=== PATIENT | female | born 1955 | race Caucasian/White ===

== ENCOUNTER 2017-12-09 17:21 | Emergency (ER) | payer OTHER ==
[2017-12-09 19:08] LABS: BASO # 0.1 10^3/uL (0.0-0.2); BASO % 0.8 % (0.0-1.0); EOS # 0.3 10^3/uL (0.0-0.50); EOS % 3.6 % (0.0-3.0); HEMATOCRIT 42.1 % (36.0-47.0); HEMOGLOBIN 14.5 g/dl (12.0-15.5); IMMATURE GRANULOCYTE % 0.5 % (0-3.0); LYMPH % 25.8 % (24.0-44.0); MEAN CORPUSCULAR HEMOGLOBIN 29.3 pg (27.0-33.0); MEAN CORPUSCULAR HGB CONC 34.4 g/dl (32.0-36.5); MEAN CORPUSCULAR VOLUME 85.1 fl (80.0-96.0); MONO # 0.6 10^3/uL (0.0-0.8); MONO % 7.8 % (0.0-5.0); NEUTROPHILS # 4.9 10^3/uL (1.8-7.7); NEUTROPHILS % 61.5 % (36.0-66.0); PLATELET COUNT, AUTOMATED 290 10^3/uL (150-450); RED BLOOD COUNT 4.95 10^6/uL (4.00-5.40); RED CELL DISTRIBUTION WIDTH 13.1 % (11.5-14.5); WHITE BLOOD COUNT 7.9 10^3/uL (4.0-10.0)
[2017-12-09 19:17] LABS: INR 0.93; PARTIAL THROMBOPLASTIN TIME 28.3 SECONDS (25.4-37.6); PROTHROMBIN TIME 12.6 SECONDS (12.1-14.4)
[2017-12-09 19:45] LABS: ALBUMIN 3.9 GM/DL (3.2-5.2); ALKALINE PHOSPHATASE 87 U/L (45-117); ALT/SGPT 52 U/L (12-78); ANION GAP 11 MEQ/L (8-16); AST/SGOT 67 U/L (7-37); BILIRUBIN,DIRECT 0.1 MG/DL (0.0-0.2); BILIRUBIN,TOTAL 0.4 MG/DL (0.2-1.0); BLOOD UREA NITROGEN 17 MG/DL (7-18); CALCIUM LEVEL 9.4 MG/DL (8.8-10.2); CARBON DIOXIDE LEVEL 25 MEQ/L (21-32); CHLORIDE LEVEL 105 MEQ/L (98-107); CPK CREATINE PHOSPHOKINASE 523 U/L (26-192); CREATININE FOR GFR 0.72 MG/DL (0.55-1.30); FREE T4 1.09 NG/DL (0.76-1.46); GLOMERULAR FILTRATION RATE > 60.0 (>45); GLUCOSE, FASTING 219 MG/DL (70-100); LIPASE 257 U/L (73-393); MB/CK RELATIVE INDEX 0.54 (< OR =4); NT-PRO BNP 101 PG/ML (<125); POTASSIUM SERUM 4.2 MEQ/L (3.5-5.1); SODIUM LEVEL 141 MEQ/L (136-145); TOTAL PROTEIN 7.8 GM/DL (6.4-8.2); TROPONIN I < 0.02 NG/ML (< 0.10)
[2017-12-09] MEDS: CHLORTHALIDONE 12.5MG PER 1/2 TABLET PO (21:15)
== END 2017-12-09 21:20 | disposition home or self-care (01) ==
LOC: M ED 17:21
DX: I16.0 Hypertensive urgency (principal); T39.395A Adverse effect of other nonsteroidal anti-inflammatory drugs [NSAID], initial encounter; Y92.9 Unspecified place or not applicable; Y93.9 Activity, unspecified; J45.909 Unspecified asthma, uncomplicated; E78.5 Hyperlipidemia, unspecified; M54.30 Sciatica, unspecified side; Z79.82 Long term (current) use of aspirin; Z79.899 Other long term (current) drug therapy; Z88.1 Allergy status to other antibiotic agents; Z88.8 Allergy status to other drugs, medicaments and biological substances
CPT/HCPCS: 71045

== ENCOUNTER → 2017-12-12 | Outpatient (REF) | payer OTHER ==
[2017-12-12 12:53] LABS: PLATELET COUNT, AUTOMATED 264 10^3/uL (150-450)
[2017-12-12 12:55] LABS: INR 0.89; PROTHROMBIN TIME 12.1 SECONDS (12.1-14.4)
[2017-12-12 12:56] LABS: PARTIAL THROMBOPLASTIN TIME 29.3 SECONDS (25.4-37.6)
== END ==
LOC: M LABDRAW1 11:13
DX: Z01.812 Encounter for preprocedural laboratory examination (principal)

== ENCOUNTER → 2018-06-28 | Outpatient (REF) | payer OTHER ==
[~2018-06-28] MED LIST: ASPI81TA26 PO; ATOR1TAB19 PO; CHLO125TA PO; CLAR10CA3 PO; FISH100049 PO; FLAX10008 PO; FLON1SPR NARES; GABA-843 PO; LISI40TA PO; LUTE1CAP7 PO; MELO7.5T7 PO; METF500T13 PO; MONT10TA2 PO; OMEP20CA3 PO; SYMB16INH PO; VENTAER; VITA-176 PO; XIID5DRO OS; ZADI1DRO OS
== END ==
LOC: M LAB REF 11:55
PROVIDERS: ATTEND Nurse Practitioner Family
DX: N76.0 Acute vaginitis (principal)

== ENCOUNTER 2019-10-07 14:47 | Emergency (ER) | payer OTHER ==
[~2019-10-07] VITALS: Ht 162.6 cm; Wt 85.3 kg
[~2019-10-07 14:47] MED LIST changes: -MONT10TA2 PO; +MONT10TA4 PO; +OMEP1CAP73 PO; -OMEP20CA3 PO
[2019-10-07] MEDS ORDERED: PANT20TA6 PO (15:31)
[2019-10-07] MEDS ORDERED: QVAR80AE8 INH (15:31)
[2019-10-07] MEDS ORDERED: OZEM2INJ SC (15:31)
[2019-10-07] MEDS ORDERED: JANU100T PO (15:31)
[2019-10-07] MEDS ORDERED: MELO7.5T35 PO (15:32)
[2019-10-07] MEDS ORDERED: IBUPROFEN 800 MG TAB PO ONE (15:45)
[2019-10-07] MEDS ORDERED: ACETAMINOPHEN 500 MG TAB PO ONE (15:45)
[2019-10-07] MEDS ORDERED: ROBA750T4 PO (16:44)
[2019-10-07 16:53] VITALS: BP 135/68
--- NOTE | 2019-10-08 09:07 | REP ---
REASON: Trauma. FINDINGS: The hip joint space is symmetric and relatively well maintained. There is no acute or destructive osseous lesion. Electronically Signed by Jourdan Velez DO 10/08/2019 09:41 A
--- NOTE | 2019-10-08 09:07 | REP ---
REASON: Trauma. COMPARISON: No priors. FINDINGS: No acute fracture or destructive osseous lesion. The mortise is intact. Electronically Signed by Jourdan Velez DO 10/08/2019 09:41 A
--- NOTE | 2019-10-08 09:33 | REP ---
REASON: Trauma. FINDINGS: No acute fracture or destructive osseous lesion. Electronically Signed by Jourdan Velez DO 10/08/2019 09:41 A
== END 2019-10-07 16:54 | disposition home or self-care (01) ==
LOC: M ED 14:47
DX: S76.012A Strain of muscle, fascia and tendon of left hip, initial encounter (principal); S96.912A Strain of unspecified muscle and tendon at ankle and foot level, left foot, initial encounter; S46.811A Strain of other muscles, fascia and tendons at shoulder and upper arm level, right arm, initial encounter; W10.8XXA Fall (on) (from) other stairs and steps, initial encounter; Y92.098 Other place in other non-institutional residence as the place of occurrence of the external cause; Y93.01 Activity, walking, marching and hiking; Y99.8 Other external cause status; I10 Essential (primary) hypertension; E11.9 Type 2 diabetes mellitus without complications; J45.909 Unspecified asthma, uncomplicated; E78.5 Hyperlipidemia, unspecified; Z88.1 Allergy status to other antibiotic agents; Z79.899 Other long term (current) drug therapy; Z79.51 Long term (current) use of inhaled steroids; Z79.84 Long term (current) use of oral hypoglycemic drugs

== ENCOUNTER → 2022-03-11 | Outpatient (CLI) | payer MEDICARE, OTHER ==
[~2022-03-11] MED LIST changes: +GABA-282 PO; -GABA-843 PO; +JANU100T PO; -LISI40TA PO; +LISI40TA4 PO; +MELO7.5T35 PO; -MONT10TA4 PO; +MONT10TA97 PO; +OZEM2INJ SC; +PANT20TA6 PO; +QVAR80AE8 INH; +ROBA750T4 PO
== END ==
LOC: M PLAIMG 10:15
PROVIDERS: ATTEND Physician Assistant
DX: M16.12 Unilateral primary osteoarthritis, left hip (principal)

== ENCOUNTER → 2022-09-02 | Outpatient (CLI) | payer MEDICARE, OTHER | LOC: M WUC 10:31 | PROVIDERS: ATTEND Internal Medicine | DX: M25.571 Pain in right ankle and joints of right foot (principal) ==

== ENCOUNTER 2023-06-11 20:51 | Inpatient (IN) | payer MEDICARE, OTHER ==
[~2023-06-11] VITALS: Ht 162.6 cm; Wt 77.6 kg
[~2023-06-11 20:51] MED LIST changes: -VENTAER; +VENTAER INH; -XIID5DRO OS; +XIID5DRO OU
[2023-06-11 21:28] LABS: BASO # 0.1 10^3/uL (0.0-0.2); BASO % 0.3 % (0.0-1.0); EOS # 0.2 10^3/uL (0.0-0.5); EOS % 1.3 % (0.0-3.0); HEMATOCRIT 39.4 % (36.0-47.0); HEMOGLOBIN 12.4 g/dl (12.0-15.5); LYMPH # 1.5 10^3/uL (1.5-5.0); LYMPH % 9.8 % (24.0-44.0); MEAN CORPUSCULAR HEMOGLOBIN 26.1 pg (27.0-33.0); MEAN CORPUSCULAR HGB CONC 31.5 g/dl (32.0-36.5); MEAN CORPUSCULAR VOLUME 82.9 fl (80.0-96.0); MONO % 6.4 % (2.0-8.0); NEUTROPHILS # 12.6 10^3/uL (1.5-8.5); NEUTROPHILS % 81.7 % (36.0-66.0); PLATELET COUNT, AUTOMATED 368 10^3/uL (150-450); RED BLOOD COUNT 4.75 10^6/uL (4.00-5.40); WHITE BLOOD COUNT 15.4 10^3/uL (4.0-10.0)
[2023-06-11] MEDS: ONDANSETRON 4MG 2ML VIAL IV ONE (21:57)
[2023-06-11 22:05] LABS: BILIRUBIN,DIRECT 0.1 MG/DL (<0.4); BILIRUBIN,TOTAL 0.3 MG/DL (0.3-1.2); CALCIUM LEVEL 9.4 MG/DL (8.3-10.6); CREATININE FOR GFR 2.52 MG/DL (0.55-1.30); GLOMERULAR FILTRATION RATE 20.3 (>45); POTASSIUM SERUM 7.1 MMOL/L (3.5-5.1); TOTAL PROTEIN 7.5 G/DL (5.7-8.2)
[2023-06-11] MEDS: CALCIUM CHLORIDE 10% 1 GM/10 ML SYR IV ONE (22:39)
[2023-06-11] MEDS: DEXTROSE 50% 50ML SYRINGE IV ONE (22:39)
[2023-06-11] MEDS: PATIROMER SORBITEX CALCIUM 8.4 GM POWDER PACKET (VELTASSA) PO ONE (22:39)
[2023-06-11] MEDS: HumuLIN R (REGULAR) INSULIN (NovoLIN R) **100U/ML** PER UNIT IV ONE (22:39)
[2023-06-11] MEDS: NS 1,000 ML IV ONE (22:40)
[2023-06-11 22:41] LABS: VENOUS BASE EXCESS -10.9 (-2.0-2.0); VENOUS HCO3 15.4 MMOL/L (23.0-27.0); VENOUS O2 SATURATION 84.1 % (60.0-80.0); VENOUS PARTIAL PRESSURE CO2 35.8 mmHg (38.0-50.0); VENOUS PARTIAL PRESSURE O2 50.4 mmHg (30.0-50.0); VENOUS PH 7.251 UNITS (7.330-7.430); VENOUS STANDARD HCO3 15.7 MMOL/L; VENOUS TOTAL CO2 16.5 MMOL/L (24.0-28.0)
[2023-06-11] MEDS: SODIUM BICARBONATE 8.4% INJ 50ML SYRINGE IV ONE (22:57)
[2023-06-12] VITALS (7 sets, daily range): BP systolic 114–140; BP diastolic 53–72; TEMP 97.5–98.2; O2SAT 95–100
[2023-06-12] MEDS: PIPERACILLIN/TAZOBACTAM SOD 2.25 GM in D5W MINI-BAG PLUS 50 ML IV ONE
[2023-06-12] MEDS ORDERED: VENL75CA47 PO (00:11)
[2023-06-12] MEDS ORDERED: ZYRT10TA12 PO (00:11)
[2023-06-12] MEDS ORDERED: XALA0.007 OU (00:11)
[2023-06-12] MEDS ORDERED: SEMA2PEN INJ (00:11)
[2023-06-12] MEDS ORDERED: FARX1TAB3 PO (00:11)
[2023-06-12] MEDS ORDERED: CHLO125TA PO (00:11)
[2023-06-12] MEDS ORDERED: JANU25TA PO (00:11)
[2023-06-12] MEDS ORDERED: ALAW0.02 OU (00:12)
[2023-06-12] MEDS ORDERED: HOME MED LIST COMPLETE! XX SCH (00:15)
[2023-06-12] MEDS ORDERED: PIPERACILLIN/TAZOBACTAM SOD 2.25 GM in D5W MINI-BAG PLUS 50 ML IV SCH (01:35)
[2023-06-12] MEDS ORDERED: ALBUTEROL 90 MCG/ACT 8GM HFA INHALER INH PRN (01:35)
[2023-06-12] MEDS ORDERED: HYDROMORPHONE HCL 0.5 MG/ 0.5 ML SYRINGE IV PRN (01:35)
[2023-06-12] MEDS: NS 1,000 ML IV SCH ×2 (01:53)
[2023-06-12] MEDS: LATANOPROST 0.005% OPHTH SOLN 2.5 ML OU SCH (02:39)
[2023-06-12] MEDS ORDERED: DEXTROSE 50% 50ML SYRINGE IV PRN (04:40)
[2023-06-12] MEDS ORDERED: GLUCOSE 4GM CHEW TABLET PO PRN (04:40)
[2023-06-12] MEDS ORDERED: GLUCAGON INJ 1MG VIAL SC PRN (04:40)
[2023-06-12 05:43] LABS: HEMOGLOBIN 10.5 g/dl (12.0-15.5)
[2023-06-12] MEDS: INSULIN LISPRO (NovoLOG) PER UNIT SC SCH ×3 (06:00→20:56)
[2023-06-12 06:24] LABS: ALBUMIN 3.3 G/DL (3.2-5.2); BILIRUBIN,TOTAL 0.4 MG/DL (0.3-1.2); CALCIUM LEVEL 9.1 MG/DL (8.3-10.6); CREATININE FOR GFR 2.09 MG/DL (0.55-1.30); GLOMERULAR FILTRATION RATE 25.1 (>45); POTASSIUM SERUM 6.2 MMOL/L (3.5-5.1); TOTAL PROTEIN 6.2 G/DL (5.7-8.2)
[2023-06-12] MEDS: HEPARIN SOD (PORCINE) 5000UNITS/ML 1ML VIAL/SYRINGE SC SCH (06:31)
[2023-06-12] MEDS: CALCIUM GLUCONATE 1,000 MG in D5W MINI-BAG PLUS 100 ML IV STA (07:11)
[2023-06-12] MEDS: DEXTROSE 50% 50ML SYRINGE IV STA (07:11)
[2023-06-12] MEDS: HumuLIN R (REGULAR) INSULIN (NovoLIN R) **100U/ML** PER UNIT IV STA (07:12)
[2023-06-12] MEDS: SYMBICORT 160/4.5MCG INHALER 6GM INH SCH (07:18)
[2023-06-12] MEDS ORDERED: MORPHINE 2 MG/ML 1ML VIAL IV PRN ×2 (07:20)
[2023-06-12 07:28] LABS: HEMATOCRIT 30.9 % (36.0-47.0); HEMOGLOBIN 9.9 g/dl (12.0-15.5); MEAN CORPUSCULAR HEMOGLOBIN 26.5 pg (27.0-33.0); MEAN CORPUSCULAR VOLUME 82.6 fl (80.0-96.0); RED BLOOD COUNT 3.74 10^6/uL (4.00-5.40); WHITE BLOOD COUNT 7.8 10^3/uL (4.0-10.0)
[2023-06-12 07:29] LABS: PLATELET COUNT, AUTOMATED 268 10^3/uL (150-450)
[2023-06-12] MEDS: PIPERACILLIN/TAZOBACTAM SOD 2.25 GM in D5W MINI-BAG PLUS 50 ML IV SCH ×2 (08:15→13:20)
[2023-06-12] MEDS: PATIROMER SORBITEX CALCIUM 8.4 GM POWDER PACKET (VELTASSA) PO STA (09:01)
[2023-06-12 09:10] LABS: INR 1.22; PARTIAL THROMBOPLASTIN TIME 29.8 SECONDS (24.8-34.2)
[2023-06-12] MEDS: traMADol 50 MG TAB PO PRN (09:24)
[2023-06-12 12:57] LABS: ALBUMIN 3.4 G/DL (3.2-5.2); BILIRUBIN,TOTAL 0.5 MG/DL (0.3-1.2); CALCIUM LEVEL 9.3 MG/DL (8.3-10.6); CREATININE FOR GFR 1.88 MG/DL (0.55-1.30); GLOMERULAR FILTRATION RATE 28.4 (>45); POTASSIUM SERUM 5.6 MMOL/L (3.5-5.1); TOTAL PROTEIN 6.3 G/DL (5.7-8.2)
[2023-06-12 20:45] LABS: ALBUMIN 3.2 G/DL (3.2-5.2); BILIRUBIN,TOTAL 0.3 MG/DL (0.3-1.2); CALCIUM LEVEL 8.6 MG/DL (8.3-10.6); CREATININE FOR GFR 1.79 MG/DL (0.55-1.30); GLOMERULAR FILTRATION RATE 30.1 (>45); POTASSIUM SERUM 5.8 MMOL/L (3.5-5.1)
[2023-06-13 02:10] VITALS: BP 131/74; TEMP 97.7; O2SAT 95
[2023-06-13 04:25] LABS: HEMATOCRIT 29.8 % (36.0-47.0); HEMOGLOBIN 9.7 g/dl (12.0-15.5); MEAN CORPUSCULAR HEMOGLOBIN 26.4 pg (27.0-33.0); MEAN CORPUSCULAR HGB CONC 32.6 g/dl (32.0-36.5); MEAN CORPUSCULAR VOLUME 81.2 fl (80.0-96.0); PLATELET COUNT, AUTOMATED 256 10^3/uL (150-450); RED BLOOD COUNT 3.67 10^6/uL (4.00-5.40); WHITE BLOOD COUNT 6.6 10^3/uL (4.0-10.0)
[2023-06-13 04:57] LABS: BILIRUBIN,TOTAL 0.3 MG/DL (0.3-1.2); CALCIUM LEVEL 8.2 MG/DL (8.3-10.6); CREATININE FOR GFR 1.68 MG/DL (0.55-1.30); GLOMERULAR FILTRATION RATE 32.4 (>45); POTASSIUM SERUM 5.4 MMOL/L (3.5-5.1); TOTAL PROTEIN 5.8 G/DL (5.7-8.2)
[2023-06-13 05:25] VITALS: BP 138/72; TEMP 97.7; O2SAT 96
[2023-06-13] MEDS: ONDANSETRON 4MG 2ML VIAL IV PRN (08:18)
[2023-06-13 10:00] VITALS: BP 137/70; TEMP 97.7; O2SAT 94
[2023-06-13 12:32] LABS: ALBUMIN 3.3 G/DL (3.2-5.2); BILIRUBIN,TOTAL 0.3 MG/DL (0.3-1.2); CALCIUM LEVEL 8.4 MG/DL (8.3-10.6); CREATININE FOR GFR 1.55 MG/DL (0.55-1.30); GLOMERULAR FILTRATION RATE 35.5 (>45); POTASSIUM SERUM 5.8 MMOL/L (3.5-5.1); TOTAL PROTEIN 6.2 G/DL (5.7-8.2)
[2023-06-13 14:00] VITALS: BP 147/83; TEMP 98.1; O2SAT 97
[2023-06-13] MEDS: PATIROMER SORBITEX CALCIUM 8.4 GM POWDER PACKET (VELTASSA) PO ONE (17:23)
[2023-06-13 18:00] VITALS: BP 152/90; TEMP 97.9; O2SAT 99
[2023-06-13 19:44] VITALS: BP 138/79; TEMP 97.7; O2SAT 98
[2023-06-14] VITALS (7 sets, daily range): BP systolic 140–165; BP diastolic 68–88; TEMP 97.5–97.9; O2SAT 97–100
[2023-06-14 06:50] LABS: HEMATOCRIT 31.1 % (36.0-47.0); HEMOGLOBIN 9.9 g/dl (12.0-15.5); MEAN CORPUSCULAR HEMOGLOBIN 26.4 pg (27.0-33.0); MEAN CORPUSCULAR HGB CONC 31.8 g/dl (32.0-36.5); MEAN CORPUSCULAR VOLUME 82.9 fl (80.0-96.0); PLATELET COUNT, AUTOMATED 231 10^3/uL (150-450); RED BLOOD COUNT 3.75 10^6/uL (4.00-5.40); WHITE BLOOD COUNT 6.4 10^3/uL (4.0-10.0)
[2023-06-14 07:20] LABS: ALBUMIN 3.2 G/DL (3.2-5.2); BILIRUBIN,TOTAL 0.3 MG/DL (0.3-1.2); CALCIUM LEVEL 8.2 MG/DL (8.3-10.6); CREATININE FOR GFR 1.49 MG/DL (0.55-1.30); GLOMERULAR FILTRATION RATE 37.2 (>45); POTASSIUM SERUM 5.2 MMOL/L (3.5-5.1); TOTAL PROTEIN 5.9 G/DL (5.7-8.2)
[2023-06-14] MEDS: METOCLOPRAMIDE INJ 10MG/2ML VIAL IV PRN (10:04)
[2023-06-14] MEDS: amLODIPine 5 MG TAB PO SCH (10:43)
[2023-06-14] MEDS: PERCOCET 5MG/325MG TAB PO PRN (13:06)
[2023-06-14] MEDS: ONDANSETRON 4MG 2ML VIAL IV PRN (17:42)
[2023-06-14] MEDS: traMADol 50 MG TAB PO PRN (17:45)
[2023-06-15] VITALS (7 sets, daily range): BP systolic 154–163; BP diastolic 78–90; TEMP 97.5–98; O2SAT 96–100
[2023-06-15 06:16] LABS: HEMATOCRIT 31.7 % (36.0-47.0); HEMOGLOBIN 10.1 g/dl (12.0-15.5); MEAN CORPUSCULAR HEMOGLOBIN 26.1 pg (27.0-33.0); MEAN CORPUSCULAR HGB CONC 31.9 g/dl (32.0-36.5); MEAN CORPUSCULAR VOLUME 81.9 fl (80.0-96.0); PLATELET COUNT, AUTOMATED 251 10^3/uL (150-450); RED BLOOD COUNT 3.87 10^6/uL (4.00-5.40); WHITE BLOOD COUNT 6.3 10^3/uL (4.0-10.0)
[2023-06-15 06:51] LABS: ALBUMIN 3.2 G/DL (3.2-5.2); BILIRUBIN,TOTAL 0.4 MG/DL (0.3-1.2); CALCIUM LEVEL 8.3 MG/DL (8.3-10.6); CREATININE FOR GFR 1.34 MG/DL (0.55-1.30); POTASSIUM SERUM 4.5 MMOL/L (3.5-5.1); TOTAL PROTEIN 5.8 G/DL (5.7-8.2)
[2023-06-15] MEDS: SENOKOT S TAB PO SCH (12:29)
[2023-06-15] MEDS: **hydrALAZINE** 10 MG TAB PO SCH (20:29)
[2023-06-16 02:00] VITALS: BP 151/81; TEMP 97.5; O2SAT 97
[2023-06-16 06:00] VITALS: BP 141/67; TEMP 97.5; O2SAT 96
[2023-06-16 06:55] LABS: CALCIUM LEVEL 8.4 MG/DL (8.3-10.6); CREATININE FOR GFR 1.29 MG/DL (0.55-1.30); GLOMERULAR FILTRATION RATE 43.9 (>45); POTASSIUM SERUM 3.9 MMOL/L (3.5-5.1)
[2023-06-16] MEDS ORDERED: MAGNESIUM OXIDE 400MG TAB (MAG-OX) PO ONE (08:00)
[2023-06-16] MEDS: MAG SULF 1GM/100ML (MAG RUN) 1 GM in IV 1 EA IV SCH (09:26)
[2023-06-16 09:30] VITALS: BP 152/72; TEMP 97.3; O2SAT 99
[2023-06-16] MEDS: MAGNESIUM CITRATE 300ML BTL PO ONE (10:28)
[2023-06-16 14:00] VITALS: BP 146/70; TEMP 97.9; O2SAT 99
[2023-06-16] MEDS: PIPERACILLIN/TAZOBACTAM SOD 3.375 GM in D5W MINI-BAG PLUS 50 ML IV SCH (14:30)
[2023-06-16] MEDS: MAG SULF 1GM/100ML (MAG RUN) 1 GM in IV 1 EA IV ONE (15:59)
[2023-06-16] MEDS: ACETAMINOPHEN TAB 650MG DOSE (2X325MG) PO PRN (16:03)
[2023-06-16 18:00] VITALS: BP 154/79; TEMP 97.9; O2SAT 99
[2023-06-16 22:00] VITALS: BP 155/83; TEMP 98.1; O2SAT 96
[2023-06-17 02:25] VITALS: BP 145/76; TEMP 97.9; O2SAT 96
[2023-06-17 05:20] VITALS: BP 150/74; TEMP 98.1; O2SAT 98
[2023-06-17 07:36] LABS: CALCIUM LEVEL 8.9 MG/DL (8.3-10.6); CREATININE FOR GFR 1.31 MG/DL (0.55-1.30); GLOMERULAR FILTRATION RATE 43.1 (>45); MAGNESIUM LEVEL 2.1 MG/DL (1.8-2.4); POTASSIUM SERUM 4.2 MMOL/L (3.5-5.1)
[2023-06-17] MEDS ORDERED: GABAPENTIN 300 MG CAP PO SCH (09:00)
[2023-06-17] MEDS: LIDOCAINE 5% (LIDODERM) PATCH TD SCH (09:45)
[2023-06-17] MEDS: GABAPENTIN 300 MG CAP PO SCH (09:46)
[2023-06-17 10:00] VITALS: BP 147/73; TEMP 97.3; O2SAT 97
[2023-06-17 10:44] LABS: URIC ACID 5.2 MG/DL (3.1-7.8)
[2023-06-17 10:46] LABS: C REACTIVE PROTEIN QUANTITATIV 16.5 MG/DL (<1.0)
[2023-06-17] MEDS: predniSONE 20 MG TAB PO SCH (11:18)
[2023-06-17 14:00] VITALS: BP 150/76; TEMP 97.5; O2SAT 95
[2023-06-17 18:00] VITALS: BP 150/77; TEMP 97.5; O2SAT 94
[2023-06-17 21:00] VITALS: BP 148/79; TEMP 98.1; O2SAT 94
[2023-06-18 02:00] VITALS: BP 143/77; TEMP 97.7; O2SAT 95
[2023-06-18 05:38] VITALS: BP 140/74; TEMP 97.7; O2SAT 95
[2023-06-18 08:27] LABS: CALCIUM LEVEL 9.2 MG/DL (8.3-10.6); CREATININE FOR GFR 1.23 MG/DL (0.55-1.30); GLOMERULAR FILTRATION RATE 46.4 (>45); POTASSIUM SERUM 3.9 MMOL/L (3.5-5.1)
[2023-06-18 10:00] VITALS: BP 127/76; TEMP 97.5; O2SAT 96
[2023-06-18 14:00] VITALS: BP 129/76; TEMP 97.9; O2SAT 94
[2023-06-18 18:00] VITALS: BP 169/85; TEMP 97.7; O2SAT 99
[2023-06-18 20:05] VITALS: BP 133/75; TEMP 97.7; O2SAT 95
[2023-06-19 01:35] VITALS: BP 128/73; TEMP 97.5; O2SAT 95
[2023-06-19 04:37] VITALS: BP 133/74; TEMP 97.5; O2SAT 96
[2023-06-19 07:58] VITALS: BP 147/71
[2023-06-19] MEDS ORDERED: PRED20TA PO (09:43)
[2023-06-19] MEDS ORDERED: AMLO1TAB25 PO (09:43)
[2023-06-19] MEDS ORDERED: ONDA4TAB6 PO (09:43)
[2023-06-19] MEDS ORDERED: HYDR-161 PO (09:43)
== END 2023-06-19 12:16 | disposition home or self-care (01) | DRG 392 ==
LOC: M ED 20:51 → M ED INP 06-12 00:37 → ENRESERV 06-12 01:46 → M PCU 06-12 02:13 → M MSPAV 06-12 14:18
PROVIDERS: ADMIT Internal Medicine; ATTEND Student in an Organized Health Care Education/Training Program
DX: K57.32 Diverticulitis of large intestine without perforation or abscess without bleeding (principal); N17.9 Acute kidney failure, unspecified; E87.20 Acidosis, unspecified; E87.5 Hyperkalemia; E11.22 Type 2 diabetes mellitus with diabetic chronic kidney disease; I12.9 Hypertensive chronic kidney disease with stage 1 through stage 4 chronic kidney disease, or unspecified chronic kidney disease; E78.00 Pure hypercholesterolemia, unspecified; J45.909 Unspecified asthma, uncomplicated; K21.9 Gastro-esophageal reflux disease without esophagitis; K80.20 Calculus of gallbladder without cholecystitis without obstruction; E86.0 Dehydration; R91.1 Solitary pulmonary nodule; F32.A Depression, unspecified; D64.9 Anemia, unspecified; K76.0 Fatty (change of) liver, not elsewhere classified; E11.42 Type 2 diabetes mellitus with diabetic polyneuropathy; N18.30 Chronic kidney disease, stage 3 unspecified; Z79.82 Long term (current) use of aspirin; Z79.84 Long term (current) use of oral hypoglycemic drugs; Z79.899 Other long term (current) drug therapy; Z88.1 Allergy status to other antibiotic agents

== ENCOUNTER 2023-07-29 10:23 | Day surgery (SDC) | payer MEDICARE, OTHER ==
[~2023-07-29] VITALS: Ht 162.6 cm; Wt 74.9 kg
[~2023-07-29 10:23] MED LIST changes: +ALAW0.02 OU; +AMLO1TAB25 PO; +COLC0.6T47 PO; +FARX1TAB3 PO; +HYDR-161 PO; +JANU25TA PO; +ONDA4TAB6 PO; +PRED20TA PO; +SEMA2PEN INJ; +VENL75CA47 PO; +XALA0.007 OU; +ZOLP5TAB PO; +ZYRT10TA12 PO
[2023-07-29] MEDS: SCOPOLAMINE 1MG TRANSDERMAL PATCH TOP ONE (11:04)
[2023-07-29] MEDS: LR 1,000 ML IV SCH (11:04)
[2023-07-29] MEDS ORDERED: LIDOCAINE 2% 100MG/5ML SDV (FOR ANES.) As Ordered ONE (11:28)
[2023-07-29] MEDS ORDERED: ACETAMINOPHEN 1000MG 100ML IV BAG As Ordered ONE (11:28)
[2023-07-29] MEDS ORDERED: propofoL 200 MG/20 ML VIAL As Ordered ONE (11:28)
[2023-07-29] MEDS ORDERED: MIDAZOLAM INJ 2MG/2ML VIAL As Ordered ONE (11:28)
[2023-07-29] MEDS ORDERED: fentaNYL 100 MCG/2 ML INJECTION As Ordered ONE (11:28)
[2023-07-29] MEDS ORDERED: ONDANSETRON 4MG 2ML VIAL As Ordered ONE (11:28)
[2023-07-29] MEDS ORDERED: ROCURONIUM BROMIDE 50MG/5ML VIAL As Ordered ONE (11:28)
[2023-07-29] MEDS ORDERED: KETOROLAC 60MG 2ML VIAL As Ordered ONE (11:28)
[2023-07-29] MEDS ORDERED: PHENYLephrine 500MCG 5ML (100MCG/ML) SYRINGE As Ordered ONE (11:32)
[2023-07-29] MEDS ORDERED: HYDROmorphone HCL 2MG/ML 1ML VIAL As Ordered ONE (11:35)
[2023-07-29] MEDS ORDERED: fentaNYL 100 MCG/2 ML INJECTION IV PRN (12:25)
[2023-07-29] MEDS: oxyCODONE 5MG TAB PO PRN (12:39)
[2023-07-29] MEDS: HYDROMORPHONE HCL 0.5 MG/ 0.5 ML SYRINGE IV PRN (12:45)
[2023-07-29] MEDS: ONDANSETRON 4MG 2ML VIAL IV PRN (13:00)
[2023-07-29 14:00] VITALS: BP 121/56; TEMP 98; O2SAT 95
[2023-07-29] MEDS ORDERED: NORCO, ANEXSIA 5/325MG TABLET (HYDROcodone/ACETAMINOPHEN) PO PRN (15:35)
== END 2023-07-29 14:05 | disposition home or self-care (01) ==
LOC: M SDC 10:23
PROVIDERS: ATTEND Surgery
DX: K80.10 Calculus of gallbladder with chronic cholecystitis without obstruction (principal); E11.22 Type 2 diabetes mellitus with diabetic chronic kidney disease; I12.9 Hypertensive chronic kidney disease with stage 1 through stage 4 chronic kidney disease, or unspecified chronic kidney disease; E78.00 Pure hypercholesterolemia, unspecified; N18.9 Chronic kidney disease, unspecified; J45.909 Unspecified asthma, uncomplicated; Z79.899 Other long term (current) drug therapy; Z79.82 Long term (current) use of aspirin; Z79.51 Long term (current) use of inhaled steroids; Z88.1 Allergy status to other antibiotic agents
CPT/HCPCS: 47562; 88304; J0131; J0665; J1100; J1170; J1885; J2250; J2371; J2405; J3010

== ENCOUNTER 2023-09-07 06:45 | Day surgery (SDC) | payer MEDICARE, OTHER ==
[~2023-09-07] VITALS: Ht 162.6 cm; Wt 75.0 kg
[~2023-09-07 06:45] MED LIST changes: +ALLO10TA PO; +ONDA-282 PO; -ONDA4TAB6 PO
[2023-09-07] MEDS ORDERED: propofoL 200 MG/20 ML VIAL As Ordered ONE (07:05)
[2023-09-07] MEDS: NS 1,000 ML IV ONE (07:24)
[2023-09-07 08:16] VITALS: TEMP 97.5
[2023-09-07 08:30] VITALS: BP 122/59; O2SAT 97
== END 2023-09-07 08:38 | disposition home or self-care (01) ==
LOC: M OPP 06:45
PROVIDERS: ATTEND Surgery
DX: K57.30 Diverticulosis of large intestine without perforation or abscess without bleeding (principal); R19.7 Diarrhea, unspecified; E11.9 Type 2 diabetes mellitus without complications; Z79.51 Long term (current) use of inhaled steroids; Z79.82 Long term (current) use of aspirin; Z79.84 Long term (current) use of oral hypoglycemic drugs; Z79.899 Other long term (current) drug therapy; Z88.1 Allergy status to other antibiotic agents

== ENCOUNTER → 2024-03-23 | Outpatient (CLI) | payer MEDICARE, OTHER ==
[~2024-03-23] MED LIST changes: +GABA-1172 PO; -GABA-282 PO
== END ==
LOC: M WUC 11:39
PROVIDERS: ATTEND Nurse Practitioner Family
DX: R06.02 Shortness of breath (principal); R06.2 Wheezing

== ENCOUNTER → 2025-01-23 | Outpatient (REF) | payer MEDICARE, OTHER ==
[~2025-01-23] MED LIST changes: -COLC0.6T47 PO; +COLC0.6T53 PO; +LIFI1DRO4 OU; +LISI40TA10 PO; -LISI40TA4 PO; -XIID5DRO OU; -ZOLP5TAB PO; +ZOLP5TAB9 PO
== END ==
LOC: M LAB REF 12:24
PROVIDERS: ATTEND Nurse Practitioner Family
DX: M10.9 Gout, unspecified (principal)